=== PATIENT | female | born 2000 | race Caucasian/White ===

== ENCOUNTER 2024-08-28 18:05 | Emergency (ER) | payer OTHER ==
[2024-08-28 18:24] VITALS: TEMP 97; O2SAT 100
[2024-08-28 18:45] LABS: BASOPHIL % 0.3 % (0.1-1.2); Basophil (Absolute #) 0.05 x10^3/uL (0.01-0.08); Eosinophil (Absolute #) 0.20 x10^3/uL (0.04-0.36); Hematocrit 37.6 % (34.1-44.9); Hemoglobin 12.7 g/dL (11.2-15.7); IMMATURE GRAN # 0.05 x10^3u/L (0.001-0.031); IMMATURE GRAN % 0.3 % (0.001-0.429); Lymphocyte (Absolute #) 2.58 x10^3/uL (1.18-3.74); Mean Corpuscular Hemoglobin 30.1 pg (25.6-32.2); Mean Corpuscular Hgb Concent. 33.8 g/dL (32.2-35.5); Monocyte (Absolute #) 0.82 x10^3/uL (0.24-0.86); NUCLEATED RBC # 0.00 x10^3u/L (0.00-0.012); NUCLEATED RBC % 0.0 % (0.00-0.2); Platelet Count 318 x10^3/uL (182-369); Red Blood Count 4.22 x10^6/uL (3.93-5.22); White Blood Count 14.3 x10^3/uL (3.98-10.04)
[2024-08-28 19:11] LABS: CK-Creatinine Phosphokinase 132 U/L (30-135); Calcium 10.1 mg/dL (8.4-10.2); Carbon Dioxide 22 mmol/L (22-30); Creatinine 1 1.00 mg/dL (0.52-1.04); EST GLOMERULAR FILTRATION RATE 80.7 ML/MIN; Glucose 104 mg/dL (74-106); Potassium 3.0 mmol/L (3.5-5.1); SGOT/AST 64 U/L (14-36); SGPT/ALT 56 U/L (0-35); TROPONIN < 0.012 ng/mL (0.000-0.033); Total Protein 8.3 g/dL (6.3-8.2)
[2024-08-28] MEDS ORDERED: Klor Con ONE (19:23)
[2024-08-28] MEDS: Klor Con PO ONE (19:24)
[2024-08-28 19:25] LABS: HCG SERUM TEST NEGATIVE (NEGATIVE)
--- NOTE | 2024-08-28 19:32 | ERPHSYRPT ---
- History of Present Illness Time Seen by Provider: 08/28/24 18:08 Source: patient, EMS Exam Limitations: no limitations Patient Subjective Stated Complaint: PT HERE FOR NOT FEELING WELL TODAY, SHE STATES SHE HAS BEEN IN AND OUT OF THE HEAT SINCE 11:00 TODAY, SHE HAS DRANK BUT HAS NOT EAT TODAY, SOME NAUSEA AND WEAKNESS Triage Nursing Assessment: PT ALERT,ARRIVED PER EMS RESP EASY, SKIN W/D/P. NO COUGH, ABD SOFT, MOVES ALL EXT WELL. Physician History: 24-year-old female with history of anxiety, hypothyroidism presented in the ER by EMS with complaints of generalized weakness fatigue tiredness and feeling as if she was going to pass out. Patient reports she was working in and out all day long, got really hot, was sweating and later on she started to feel dizzy lightheaded with nausea and felt as if she was going to pass out. She was dry heaving earlier. Denies any chest pain palpitations or shortness of breath. Patient reports she is feeling better now. Patient heart rate is in 40s and 50s and takes propranolol 20 mg 3 times a day. Allergies/Adverse Reactions: amoxicillin Allergy (Verified 08/28/24 18:13) doxycycline Allergy (Verified 08/28/24 18:13) Home Medications: Levothyroxine Sodium 100 Mcg [Synthroid 100 Mcg] 100 mcg PO DAILY 08/28/24 [History] Norethindrone-E.estradiol-Iron [Aurovela Fe 1-20 Tablet] 1 ea DAILY 08/28/24 [History] Phentermine HCl 1 ea DAILY 08/28/24 [History] Propranolol HCl [Inderal ] 20 mg PO DAILY 08/28/24 [History] Hx Tetanus, Diphtheria Vaccination/Date Given: No Hx Influenza Vaccination/Date Given: No Hx Pneumococcal Vaccination/Date Given: No Immunizations Up to Date: Yes Travel Risk - International Travel Have you traveled outside of the country in past 3 weeks: No - Emerging Infectious Disease Are you exhibiting symptoms associated with any current EIDs: No - Review of Systems Constitutional: Fatigue Eyes: No Symptoms Ears, Nose, & Throat: No Symptoms Respiratory: No Symptoms Cardiac: No Symptoms Abdominal/Gastrointestinal: Nausea Genitourinary Symptoms: No Symptoms Musculoskeletal: Myalgias Skin: No Symptoms Neurological: Dizziness, Headache Psychological: Anxiety Endocrine: No Symptoms Hematologic/Lymphatic: No Symptoms Immunological/Allergic: No Symptoms - Past Medical History Neurological History: Migraines Endocrine Medical History: Hypothyroidism - Past Surgical History Past Surgical History: Yes Gastrointestinal: Appendectomy Other Surgical History: WISON TEETH - Female History Hx Last Menstrual Period: JUNE Hx Now: No - Social History Smoking Status: Never smoker Exposure to second hand smoke: Yes Drug Use: none - Social Determinants of Health Will the patient participate in the screening: Declined to provide - Nursing Vital Signs Nursing Vital Signs: Initial Vital Signs Blood Pressure 174/104 08/28/24 18:09 O2 Sat by Pulse Oximetry 93 L 08/28/24 18:09 Pain Scale Pain Intensity 0 - Physical Exam General Appearance: no apparent distress, alert Eye Exam: PERRL/EOMI Ears, Nose, Throat Exam: normal ENT inspection Neck Exam: normal inspection, full range of motion Respiratory Exam: normal breath sounds, lungs clear Cardiovascular Exam: normal heart sounds, bradycardia Gastrointestinal/Abdomen Exam: soft, normal bowel sounds, No tenderness Back Exam: normal inspection, normal range of motion Extremity Exam: normal inspection, normal range of motion, pelvis stable Neurologic Exam: alert, oriented x 3, cooperative, 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, normal mood/affect, nml cerebellar function, nml station & gait, sensation nml, No motor deficits Skin Exam: normal color SpO2 Interpretation: normal SpO2: 100 O2 Delivery: Room Air - Course EKG Interpreted by Me: RATE ([id number]), Sinus Kayden, NORMAL AXIS, NORMAL INTERVALS, NORMAL QRS Ordered Tests: Active Orders 24 hr Category Date Time Status Aerial Survey Technician STAT Care 08/28/24 18:15 Active EKG-ER Only STAT Care 08/28/24 18:15 Active IV Insertion STAT Care 08/28/24 18:15 Active CBC W DIFF Stat Lab 08/28/24 18:40 Completed CK-Creatinine Phosphokinase Stat Lab 08/28/24 18:40 Completed CMP Stat Lab 08/28/24 18:40 Completed HCG QUALITATIVE, SERUM Stat Lab 08/28/24 Completed Lactic Acid Stat Lab 08/28/24 18:39 Completed MAG [MAGNESIUM] Stat Lab 08/28/24 18:40 Completed TROPONIN Q4H Lab 08/28/24 18:40 Completed TROPONIN Q4H Lab 08/28/24 22:15 Ordered TROPONIN Q4H Lab 08/29/24 02:15 Ordered TSH [TSH, 3RD Generation] Stat Lab 08/28/24 18:40 Completed UA W/RFX UR CULTURE Stat Lab 08/28/24 19:41 Completed Medication Summary Discontinued Medications Generic Name Dose Route Start Last Admin Trade Name Raimundo PRN Reason Stop Dose Admin Sodium Chloride 1,000 mls @ 999 mls/hr 08/28/24 18:15 08/28/24 19:27 Sodium Chloride 0.9% 1000 Ml IV 08/28/24 19:15 Infused .Q1H1M STA Infusion Sodium Chloride Confirm 08/28/24 18:24 Sodium Chloride 0.9% 1000 Ml Administered 08/28/24 18:25 Dose 1,000 mls @ ud .ROUTE .STK-MED ONE Potassium Chloride 40 meq 08/28/24 19:20 08/28/24 19:24 Potassium Chloride Tab 10 Meq Tab PO 08/28/24 19:21 40 meq STAT ONE Administration Potassium Chloride Confirm 08/28/24 19:23 Potassium Chloride Tab 10 Meq Tab Administered 08/28/24 19:24 Dose 40 meq .ROUTE .STK-MED ONE Lab/Rad Data: Laboratory Result Diagrams 08/28/24 18:40 08/28/24 18:40 Laboratory Results 08/28/24 08/28/24 08/28/24 Range/Units Unknown 19:41 18:40 WBC (3.98-10.04) x10^3/uL RBC (3.93-5.22) x10^6/uL Hgb (11.2-15.7) g/dL Hct (34.1-44.9) % MCV (79.4-94.8) fL MCH (25.6-32.2) pg MCHC (32.2-35.5) g/dL RDW (11.7-14.4) % Plt Count (182-369) x10^3/uL MPV (9.4-12.3) fL Gran % (34.0-71.1) % Immature Gran % (Auto) (0.001-0.429) % Nucleat RBC Rel Count (0.00-0.2) % Eos # (Auto) (0.04-0.36) x10^3/uL Immature Gran # (Auto) (0.001-0.031) x10^3u/L Absolute Lymphs (auto) (1.18-3.74) x10^3/uL Absolute Monos (auto) (0.24-0.86) x10^3/uL Absolute Nucleated RBC (0.00-0.012) x10^3u/L Lymphocytes % (19.3-51.7) % Monocytes % (4.7-12.5) % Eosinophils % (0.7-5.8) % Basophils % (0.1-1.2) % Absolute Granulocytes (1.56-6.13) x10^3/uL Basophils # (0.01-0.08) x10^3/uL Sodium (135-145) mmol/L Potassium (3.5-5.1) mmol/L Chloride (98-107) mmol/L Carbon Dioxide (22-30) mmol/L Anion Gap (5-15) MEQ/L BUN (7-17) mg/dL Creatinine (0.52-1.04) mg/dL Estimated GFR ML/MIN Glucose (74-106) mg/dL Lactic Acid (0.4-2.0) Calcium (8.4-10.2) mg/dL Magnesium (1.6-2.3) mg/dL Total Bilirubin (0.2-1.3) mg/dL AST (14-36) U/L ALT (0-35) U/L Alkaline Phosphatase (38-126) U/L Creatine Kinase (30-135) U/L Troponin I (0.000-0.033) ng/mL Serum Total Protein (6.3-8.2) g/dL Albumin (3.5-5.0) g/dL TSH 3rd Generation 1.537 (0.470-4.680) mIU/L Serum HCG, Qual NEGATIVE (NEGATIVE) Urine Color Yellow (Yellow) Urine Appearance Clear (Clear) Urine pH 6.5 (4.6-8.0) Ur Specific [place] 1.010 (1.005-1.030) Urine Protein Negative (Negative) Urine Glucose (UA) Negative (Negative) mg/dL Urine Ketones 80 A (Negative) Urine Blood Negative (Negative) Urine Nitrite Negative (Negative) Urine Bilirubin Negative (Negative) Urine Urobilinogen 1.0 A (0.2) mg/dL Ur Leukocyte Esterase Trace A (Negative) U Hyaline Cast (Auto) 3-5 A (0-2) /LPF Urine Microscopic RBC 0-2 (0-5) /HPF Urine Microscopic WBC 3-5 (0-5) /HPF Ur Epithelial Cells None Seen (None Seen) /HPF Urine Bacteria Rare A (None Seen) /HPF Urine Culture Reflexed NO (NO) 08/28/24 08/28/24 08/28/24 Range/Units 18:40 18:40 18:39 WBC 14.3 H (3.98-10.04) x10^3/uL RBC 4.22 (3.93-5.22) x10^6/uL Hgb 12.7 (11.2-15.7) g/dL Hct 37.6 (34.1-44.9) % MCV 89.1 (79.4-94.8) fL MCH 30.1 (25.6-32.2) pg MCHC 33.8 (32.2-35.5) g/dL RDW 11.8 (11.7-14.4) % Plt Count 318 (182-369) x10^3/uL MPV 10.0 (9.4-12.3) fL Gran % 74.2 H (34.0-71.1) % Immature Gran % (Auto) 0.3 (0.001-0.429) % Nucleat RBC Rel Count 0.0 (0.00-0.2) % Eos # (Auto) 0.20 (0.04-0.36) x10^3/uL Immature Gran # (Auto) 0.05 H (0.001-0.031) x10^3u/L Absolute Lymphs (auto) 2.58 (1.18-3.74) x10^3/uL Absolute Monos (auto) 0.82 (0.24-0.86) x10^3/uL Absolute Nucleated RBC 0.00 (0.00-0.012) x10^3u/L Lymphocytes % 18.1 L (19.3-51.7) % Monocytes % 5.7 (4.7-12.5) % Eosinophils % 1.4 (0.7-5.8) % Basophils % 0.3 (0.1-1.2) % Absolute Granulocytes 10.59 H (1.56-6.13) x10^3/uL Basophils # 0.05 (0.01-0.08) x10^3/uL Sodium 137 (135-145) mmol/L Potassium 3.0 L* (3.5-5.1) mmol/L Chloride 101 (98-107) mmol/L Carbon Dioxide 22 (22-30) mmol/L Anion Gap 16.9 H (5-15) MEQ/L BUN 12 (7-17) mg/dL Creatinine 1.00 (0.52-1.04) mg/dL Estimated GFR 80.7 ML/MIN Glucose 104 (74-106) mg/dL Lactic Acid 1.0 (0.4-2.0) Calcium 10.1 (8.4-10.2) mg/dL Magnesium 1.8 (1.6-2.3) mg/dL Total Bilirubin 2.60 H (0.2-1.3) mg/dL AST 64 H (14-36) U/L ALT 56 H (0-35) U/L Alkaline Phosphatase 53 (38-126) U/L Creatine Kinase 132 (30-135) U/L Troponin I < 0.012 (0.000-0.033) ng/mL Serum Total Protein 8.3 H (6.3-8.2) g/dL Albumin 4.6 (3.5-5.0) g/dL TSH 3rd Generation (0.470-4.680) mIU/L Serum HCG, Qual (NEGATIVE) Urine Color (Yellow) Urine Appearance (Clear) Urine pH (4.6-8.0) Ur Specific [place] (1.005-1.030) Urine Protein (Negative) Urine Glucose (UA) (Negative) mg/dL Urine Ketones (Negative) Urine Blood (Negative) Urine Nitrite (Negative) Urine Bilirubin (Negative) Urine Urobilinogen (0.2) mg/dL Ur Leukocyte Esterase (Negative) U Hyaline Cast (Auto) (0-2) /LPF Urine Microscopic RBC (0-5) /HPF Urine Microscopic WBC (0-5) /HPF Ur Epithelial Cells (None Seen) /HPF Urine Bacteria (None Seen) /HPF Urine Culture Reflexed (NO) - Progress Progress: improved Progress Note: 08/28/24 19:53 Differential diagnosis: Heat exhaustion, vasovagal near syncope, dehydration, acute renal failure 24-year-old is evaluated in the ER after she got too hot while at work feeling dizzy lightheaded and dry heaving. Patient was bradycardic on presentation which improved to 70s on reevaluation. EKG is sinus bradycardia with no acute ischemic changes. She is given fluids, feeling better. Workup showed normal white count, chemistries with mild hypokalemia for which she is given replacement. Patient has elevated transaminases and total bili of 2.6, patient reports she has chronic elevation in her liver enzymes. I believe patient's symptoms are related to heat exhaustion, recommended increase hydration and outpatient follow-up. Also recommended decreasing dose of propranolol to 10 mg 3 times a day and follow-up with PCP. Discussed signs symptoms of worsening needing return to ER which she seemed understanding. Stable for discharge. Complexity of problems addressed: Moderate acute Complexity of data reviewed/analyzed: Moderate Risk of complication: Low Counseled pt/family regarding: lab results, diagnosis, need for follow-up Medical Desision Making - Diagnostic Testing Diagnostic test were ordered, analyzed, and reviewed by me: Yes - Risk of complications The pt has a mod risk of morbidity or mortality based on: Need for prescription drug management - Departure Departure Disposition: Home Clinical Impression: Heat exhaustion, Hypokalemia, Bradycardia, Elevated liver enzymes Condition: Stable Critical Care Time: No Referrals: DOCTOR,NO FAMILY [Primary Care Provider, UNKNOWN] - Follow up with PCP 1 day Instructions: Heat illness - ED discharge instructions Additional Instructions: Drink plenty of fluids to keep yourself well-hydrated. Follow-up with primary care for reevaluation. Decrease dose of propranolol to 10 mg 3 times a day on top of your primary care about it. Return to ER for any worsening.
[2024-08-28 19:52] LABS: Glucose, Urine Negative (Negative); Protein,Urine Dip Negative (Negative); RBC 0-2 /HPF (0-5)
[2024-08-28 20:02] VITALS: BP 138/87; PULSE 75; RESP 23
== END 2024-08-28 20:08 | disposition home or self-care (01) ==
LOC: ED 18:05
DX: T67.5XXA Heat exhaustion, unspecified, initial encounter (principal); E87.6 Hypokalemia; R00.1 Bradycardia, unspecified; R94.5 Abnormal results of liver function studies; R53.1 Weakness; R42 Dizziness and giddiness; Z79.899 Other long term (current) drug therapy